=== PATIENT | male | born 1970 | race Hispanic/Latino ===

== ENCOUNTER → 2024-10-23 | Day surgery (SDC) | payer BC ==
[~2024-10-23] MED LIST: ASPIRIN81 MG PO; ATORVASTATIN CA20 MG PO; CALCIUM ACETAT667 M1 PO; DIALYVITE 8000.8 M1; HYDRALAZINE HC100 MG PO; NIFEDIPINE10 MG PO; PROPOFOL IV EMULSION 10 MG/ML 20 ML VIAL ONE
[2024-10-23 07:17] LABS: BASOPHILS % 2.4 % (0.0-1.0); EOSINOPHILS % 3.0 % (0.0-6.0); LYMPHOCYTES % 35.7 % (18.0-39.1); MONOCYTES % 10.5 % (4.4-11.3); NEUTROPHILS % 48.2 % (38.7-80.0); RED CELL DISTRIBUTION WIDTH 15.0 % (11.7-14.4)
[2024-10-23 07:33] LABS: INR 0.95
[2024-10-23 07:37] LABS: EST GLOMERULAR FILTRATION RATE 10.0 ML/MIN (>=60)
[2024-10-23] MEDS: SODIUM CHLORIDE 0.9% 500ML 500 ML ONE (08:06)
[2024-10-23 09:38] VITALS: TEMP 97.2
[2024-10-23 10:05] VITALS: BP 128/67; PULSE 85; RESP 18; O2SAT 100
== END | disposition home or self-care (01) ==
LOC: OR 06:17
PROVIDERS: ATTEND Internal Medicine Gastroenterology
DX: Z12.11 Encounter for screening for malignant neoplasm of colon (principal); K63.5 Polyp of colon; K64.8 Other hemorrhoids; E11.9 Type 2 diabetes mellitus without complications; Z01.810 Encounter for preprocedural cardiovascular examination; Z79.82 Long term (current) use of aspirin; Z79.899 Other long term (current) drug therapy; Z68.1 Body mass index [BMI] 19.9 or less, adult; Z87.891 Personal history of nicotine dependence
CPT/HCPCS: 36415; 45385; 80048; 82948; 85025; 85610; 85730; 88305; 93005; J2704; J7040; 45378